=== PATIENT | male | born 1995 | race Caucasian/White ===

== ENCOUNTER 2025-04-08 15:55 | Emergency (ER) | payer OTHER ==
[~2025-04-08] VITALS: Ht 167.6 cm; Wt 74.8 kg
[2025-04-08 16:04] VITALS: BP 122/71; TEMP 99.5; O2SAT 97
[2025-04-08] MEDS ORDERED: FLUT16SP16 BNOSTRILS (17:03)
[2025-04-08] MEDS ORDERED: BENZ-13 PO (17:03)
[2025-04-08] MEDS ORDERED: ALBU18HF2 INH (17:03)
== END 2025-04-08 17:23 | disposition home or self-care (01) ==
LOC: ER 16:30
DX: J40 Bronchitis, not specified as acute or chronic (principal); J06.9 Acute upper respiratory infection, unspecified; R05.9 Cough, unspecified; Z20.822 Contact with and (suspected) exposure to COVID-19
CPT/HCPCS: 71045-TC